=== PATIENT | female | born 1985 | race American Indian/Alaskan Native ===

== ENCOUNTER 2020-11-30 00:58 | Emergency (ER) | payer OTHER ==
--- NOTE | 2020-11-30 01:37 | Emergency Department Report ---
ED Headache HPI - General Chief Complaint: Headache Stated Complaint: HEADACHE FACIAL PAIN x1 day - History of Present Illness Initial Comments: 35-year-old obese F Malawian female past medical history of migraines asthma department complaining of a 1 month history of episodes of right parietal dull throbbing headaches causing some numbness and tingling off and on not responding to [id number]-jov-[id number] medications. She was previously taking Topamax but has been out of that medication and now the symptoms are continuing to linger. Reports no chest pain, no palpitations, no fever, chills, sweats. Allergies/Adverse Reactions: Allergies acetaminophen [From Percocet] Allergy (Verified 11/30/20 01:32) Unknown buspirone [From BuSpar] Allergy (Verified 11/30/20 01:32) Unknown oxycodone [From Percocet] Allergy (Verified 11/30/20 01:32) Unknown maria del carmen fish Allergy (Uncoded 11/30/20 01:32) Unknown Home Medications: Ambulatory Orders Ketorolac [Toradol] 10 mg PO Q6H PRN #14 tablet 11/30/20 ED Review of Systems ROS: Stated complaint: HEADACHE FACIAL PAIN x1 day Other details as noted in HPI Comment: All other systems reviewed and negative ED Past Medical Hx - Past Medical History Previous Medical History?: Yes Hx Psychiatric Treatment: Yes (anxeity) Hx Asthma: Yes - Surgical History Past Surgical History?: Yes Hx Cholecystectomy: Yes - Social History Smoking Status: Current Every Day Smoker Substance Use Type: None - Medications Home Medications: Home Medications Medication Instructions Recorded Confirmed Last Taken Type Ketorolac [Toradol] 10 mg PO Q6H PRN #14 tablet 11/30/20 Unknown Rx ED Physical Exam - General Limitations: No Limitations General appearance: alert, in no apparent distress - Head Head exam: Present: atraumatic, normocephalic - Eye Eye exam: Present: normal appearance, PERRL, EOMI Pupils: Present: normal accommodation - ENT ENT exam: Present: mucous membranes moist - Neck Neck exam: Present: normal inspection - Respiratory Respiratory exam: Present: normal lung sounds bilaterally. Absent: respiratory distress - Cardiovascular Cardiovascular Exam: Present: regular rate, normal rhythm. Absent: systolic murmur, diastolic murmur, rubs, gallop - GI/Abdominal GI/Abdominal exam: Present: soft, normal bowel sounds - Extremities Exam Extremities exam: Present: normal inspection - Back Exam Back exam: Present: normal inspection - Neurological Exam Neurological exam: Present: alert, oriented X3 - Psychiatric Psychiatric exam: Present: normal affect, normal mood - Skin Skin exam: Present: warm, dry, intact, normal color. Absent: rash ED Course Vital Signs 11/30/20 11/30/20 01:28 04:59 Temperature 97.5 F L Pulse Rate 76 98 H Respiratory 17 16 Rate Blood Pressure 124/80 128/69 O2 Sat by Pulse 98 100 Oximetry ED Medical Decision Making - Radiology Data Radiology results: report reviewed [facility] [address] [place] [address] Cat Scan Report Signed Patient: LORI DENNIS MR#: [id number] : 1985 Acct:[id number] Age/Sex: 35 / F ADM Date: 11/30/20 Loc: ED Attending Dr: Ordering Physician: LLOYD TOLENTINO Date of Service: 11/30/20 Procedure(s): CT head/brain wo con Accession Number(s): [id number] cc: LLOYD TOLENTINO CT HEAD WITHOUT CONTRAST INDICATION / CLINICAL INFORMATION: Patient complains of a headache. TECHNIQUE: All CT scans at this location are performed using CT dose reduction for ALARA by means of automated exposure control. COMPARISON: None available. FINDINGS: HEMORRHAGE: None. EXTRA-AXIAL SPACES: Normal in size and morphology for the patient's age. VENTRICULAR SYSTEM: Normal in size and morphology for the patient's age. CEREBRAL PARENCHYMA: No significant abnormality. No acute territorial infarct. MIDLINE SHIFT / HERNIATION: None. CEREBELLUM / BRAINSTEM: No significant abnormality. ORBITS: Normal as visualized. SOFT TISSUES: No significant abnormality. SKULL: No significant abnormality. PARANASAL SINUSES / MASTOID AIR CELLS: Normal as visualized. ADDITIONAL FINDINGS: None. IMPRESSION: 1. No acute intracranial abnormality. Signer Name: Shawn Franks MD Signed: 11/30/2020 4:15 AM Workstation Name: [id number] Transcribed By: Dictated By: Shawn Franks MD Electronically Authenticated By: Shawn Franks MD Signed Date/Time: 11/30/20 0415 DD/ 1 TD/TT: - Medical Decision Making This patient presents with a headache most consistent with migraine. Differential diagnosis includes migraine versus tension type headache. No headache red flags. Neurologic exam without evidence of meningismus, focal neurologic findings.Based on the patient's history and physical there is very low clinical suspicion for significant intracranial pathology. The headache was NOT sudden onset, NOT maximal at onset, there are NO neurologic findings, the patient does NOT have a fever, the patient does NOT have any jaw claudication, the patient does NOT endorse a clotting disorder, patient DENIES any trauma or eye pain and the headache is NOT associated with dizziness or ataxia. Presentation not consistent with acute intracranial bleed to include SAH (lack of risk factors, headache history). Presentation not consistent with acute MANAGER SURGICAL infection to include meningitis or brain abscess, Temporal arteritis unlikely, as is acute angle closure glaucoma given history and physical findings. Presentation not consistent with other acute, emergent causes of headache at this time. Plan to treat symptomatically with pain medication. No indication for imaging/LP at this time. Plan: pain medication, CT brain, serial reassessment Critical care attestation.: If time is entered above; I have spent that time in minutes in the direct care of this critically ill patient, excluding procedure time. ED Disposition Clinical Impression: Cephalgia Disposition: DC-01 TO HOME OR SELFCARE Is pt being admited?: No Does the pt Need Aspirin: No Condition: Stable Instructions: Migraine Headache, [place]-Keiu, Recurrent Migraine Headache, Form - Headache Record Prescriptions: Ketorolac [Toradol] 10 mg PO Q6H PRN #14 tablet PRN Reason: Pain Referrals: [facility] [Provider Group] - 3-5 Days [facility], [Primary Care Provider] - 3-5 Days
[2020-11-30] MEDS ORDERED: KETOROLAC 60 MG/2 ML INJ IM ONE (01:39)
--- NOTE | 2020-11-30 04:19 | Cat Scan Report ---
CT HEAD WITHOUT CONTRAST INDICATION / CLINICAL INFORMATION: Patient complains of a headache. TECHNIQUE: All CT scans at this location are performed using CT dose reduction for ALARA by means of automated exposure control. COMPARISON: None available. FINDINGS: HEMORRHAGE: None. EXTRA-AXIAL SPACES: Normal in size and morphology for the patient's age. VENTRICULAR SYSTEM: Normal in size and morphology for the patient's age. CEREBRAL PARENCHYMA: No significant abnormality. No acute territorial infarct. MIDLINE SHIFT / HERNIATION: None. CEREBELLUM / BRAINSTEM: No significant abnormality. ORBITS: Normal as visualized. SOFT TISSUES: No significant abnormality. SKULL: No significant abnormality. PARANASAL SINUSES / MASTOID AIR CELLS: Normal as visualized. ADDITIONAL FINDINGS: None. IMPRESSION: 1. No acute intracranial abnormality. Signer Name: Shawn Franks MD Signed: 11/30/2020 4:15 AM Workstation Name: [id number]
[2020-11-30 05:01] VITALS: BP 128/69
== END 2020-11-30 06:00 | disposition home or self-care (01) ==
LOC: ED 00:58
DX: R51.9 Headache, unspecified (principal); F41.9 Anxiety disorder, unspecified; J45.909 Unspecified asthma, uncomplicated; F17.200 Nicotine dependence, unspecified, uncomplicated; Z90.49 Acquired absence of other specified parts of digestive tract; Z88.8 Allergy status to other drugs, medicaments and biological substances
CPT/HCPCS: 70450; 96372; 99284; J1885

== ENCOUNTER 2020-12-13 15:17 | Emergency (ER) | payer OTHER ==
[2020-12-13] MEDS ORDERED: IBUPROFEN 600 MG TAB PO ONE (16:20)
[2020-12-13] MEDS ORDERED: ACETAMINOPHEN 500 MG TAB PO ONE (16:20)
--- NOTE | 2020-12-13 16:25 | Emergency Department Report ---
ED Back Pain/Injury HPI - General Chief Complaint: Back Pain/Injury Stated Complaint: BODY PAIN/WEAKNESS Source: patient Limitations: No Limitations - History of Present Illness Initial Comments: Patient is a 35-year-old -Rwandan female with a history of morbid obesity, asthma, anxiety and depression who presents to the ED with complaint of acute onset persistent low back pain with bilateral ankle swelling for the last 1 week after she slipped and fell down while playing football with her daughter. Patient states that the pain has been persistent in her lower back but intermittent, worse with ambulation or twisting movements. Patient also complains of urinary frequency and urgency, and would like to be tested for urinary tract infection. Patient denies dizziness, syncope, fever, chills, nausea, vomiting, abdominal pain, dysuria, vaginal bleeding, vaginal discharge, numbness and tingling or weakness of upper and lower extremities bilaterally, chest pain or shortness of breath, cough, heavy lifting or traumatic injury. MD Complaint: back pain, fall -: Sudden, week(s) (1) Similar Symptoms Previously: No Place: home Radiation: none Severity: severe Severity scale (0 -10): 8 Quality: sharp, aching Consistency: constant Improves With: none Worsens With: none Context: turning/twisting, fall Associated Symptoms: denies: denies other symptoms, confusion, weakness, chest pain, numbness, difficulty walking, cough, difficulty urinating, diaphoresis, incontinence, fever/chills, constipation, headaches, abdominal pain, loss of appetite, nausea/vomiting, rash, seizure, shortness of breath, syncope, other - Related Data Previous Rx's Medication Instructions Recorded Last Taken Type Ketorolac [Toradol] 10 mg PO Q6H PRN #14 tablet 11/30/20 Unknown Rx Baclofen 20 mg PO Q8H PRN #24 tablet 12/13/20 Unknown Rx Naproxen 500 mg PO Q12H PRN #30 tablet 12/13/20 Unknown Rx predniSONE [Deltasone] 40 mg PO QDAY #10 tab 12/13/20 Unknown Rx Allergies Allergy/AdvReac Type Severity Reaction Status Date / Time acetaminophen [From Percocet] Allergy Unknown Verified 11/30/20 01:32 buspirone [From BuSpar] Allergy Unknown Verified 11/30/20 01:32 oxycodone [From Percocet] Allergy Unknown Verified 11/30/20 01:32 maria del carmen fish Allergy Unknown Uncoded 11/30/20 01:32 ED Review of Systems ROS: Stated complaint: BODY PAIN/WEAKNESS Other details as noted in HPI Constitutional: denies: chills, fever Eyes: denies: eye pain, eye discharge, vision change ENT: denies: ear pain, throat pain Respiratory: denies: cough, shortness of breath, wheezing Cardiovascular: denies: chest pain, palpitations Endocrine: no symptoms reported Gastrointestinal: denies: abdominal pain, nausea, diarrhea Genitourinary: urgency, frequency. denies: dysuria, hematuria, discharge, abnormal menses, dyspareunia Musculoskeletal: back pain (Low back pain), joint swelling (Bilateral ankles pain and swelling), arthralgia (Bilateral ankle pain and swelling) Skin: denies: rash, lesions Neurological: denies: headache, weakness, paresthesias Psychiatric: denies: anxiety, depression Hematological/Lymphatic: denies: easy bleeding, easy bruising ED Past Medical Hx - Past Medical History Previous Medical History?: Yes Hx Psychiatric Treatment: Yes (anxeity) Hx Asthma: Yes - Surgical History Past Surgical History?: Yes Hx Cholecystectomy: Yes - Social History Smoking Status: Current Every Day Smoker Substance Use Type: None - Medications Home Medications: Home Medications Medication Instructions Recorded Confirmed Last Taken Type Ketorolac [Toradol] 10 mg PO Q6H PRN #14 tablet 11/30/20 Unknown Rx Baclofen 20 mg PO Q8H PRN #24 tablet 12/13/20 Unknown Rx Naproxen 500 mg PO Q12H PRN #30 tablet 12/13/20 Unknown Rx predniSONE [Deltasone] 40 mg PO QDAY #10 tab 12/13/20 Unknown Rx ED Physical Exam - General Limitations: No Limitations General appearance: alert, in no apparent distress - Head Head exam: Present: atraumatic, normocephalic, normal inspection - Eye Eye exam: Present: normal appearance, PERRL, EOMI Pupils: Present: normal accommodation - ENT ENT exam: Present: normal exam, normal orophraynx, mucous membranes moist, TM's normal bilaterally, normal external ear exam - Neck Neck exam: Present: normal inspection, full ROM - Respiratory Respiratory exam: Present: normal lung sounds bilaterally. Absent: respiratory distress, wheezes, rales, rhonchi, stridor, chest wall tenderness, accessory muscle use, decreased breath sounds, prolonged expiratory - Cardiovascular Cardiovascular Exam: Present: regular rate, normal rhythm, normal heart sounds. Absent: systolic murmur, diastolic murmur, rubs, gallop - GI/Abdominal GI/Abdominal exam: Present: soft, normal bowel sounds. Absent: tenderness, guarding, rebound, hyperactive bowel sounds, organomegaly - Extremities Exam Extremities exam: Present: normal inspection, full ROM, normal capillary refill. Absent: tenderness, pedal edema, joint swelling, calf tenderness - Back Exam Back exam: Present: normal inspection, full ROM, tenderness (Palpable lumbosacral paraspinal musculoskeletal tenderness), muscle spasm, paraspinal tenderness. Absent: CVA tenderness (R), CVA tenderness (L), vertebral tenderness - Neurological Exam Neurological exam: Present: alert, oriented X3, CN II-XII intact, normal gait, reflexes normal - Psychiatric Psychiatric exam: Present: normal affect, normal mood, anxious - Skin Skin exam: Present: warm, dry, intact, normal color. Absent: rash ED Course Vital Signs 12/13/20 15:53 Temperature 98.6 F Pulse Rate 79 Respiratory 18 Rate Blood Pressure 132/85 O2 Sat by Pulse 100 Oximetry ED Medical Decision Making - Medical Decision Making This is a 35-year-old -Rwand[place] female with a history of morbid obesity, asthma, anxiety and depression who presents to the ED with complaint of acute onset persistent low back pain with bilateral ankle swelling for the last 1 week after she slipped and fell down while playing football with her daughter. Patient states that the pain has been persistent in her lower back but intermittent, worse with ambulation or twisting movements. Patient also complains of urinary frequency and urgency, and would like to be tested for urinary tract infection. In the ED, patient is alert and oriented x3 and is not in any distress but appears to be in pain and anxious but stable hemodynamically. Patient was treated for pain in the ED and urinalysis showed no acute urinary tract infection or any acute abnormalities. On reevaluation, patient's pain is well controlled medication. Patient was discharged home on pain medications and muscle relaxants and was advised to follow-up with her primary care physician in 5 to 7 days for reevaluation or return to the ED immediately if symptoms get worse. - Differential Diagnosis Muscle spasm; muscle strain; back injury; UTI Critical care attestation.: If time is entered above; I have spent that time in minutes in the direct care of this critically ill patient, excluding procedure time. ED Disposition Clinical Impression: Acute bilateral low back pain without sciatica, Spasm of muscle of lower back, Strain of muscle, fascia and tendon of lower back, initial encounter Disposition: TO HOME OR SELFCARE Is pt being admited?: No Does the pt Need Aspirin: No Condition: Stable Instructions: Muscle Cramps and Spasms, Ambe-ts-Dogj, Acute Back Pain, Adult, Low Back Sprain or Strain Rehab-SportsMed Additional Instructions: Take medication with food, drink plenty of fluids and follow-up with your primary care physician in 7 to 10 days for reevaluation. Return to the ED im mediately if symptoms get worse. Prescriptions: Baclofen 20 mg PO Q8H PRN #24 tablet PRN Reason: Muscle Spasm predniSONE [Deltasone] 40 mg PO QDAY #10 tab Naproxen 500 mg PO Q12H PRN #30 tablet PRN Reason: Pain , Severe (7-10) Referrals: [facility] [Outside] - 3-5 Days [facility] [Provider Group] - 3-5 Days Time of Disposition: 17:35 Print Language: GREENLANDIC
[2020-12-13 16:34] VITALS: BP 132/85
[2020-12-13 17:17] LABS: Bilirubin,Urine NEG (Negative); Blood,Urine NEG (Negative); Color,Urine Yellow (Yellow); Mucus,Urine FEW /HPF; Protein,Urine <15 mg/dL mg/dL (Negative)
[2020-12-13 17:31] LABS: HCG Qualitative,Urine Negative (Negative)
== END 2020-12-13 18:17 | disposition home or self-care (01) ==
LOC: ED 15:17
DX: S39.012A Strain of muscle, fascia and tendon of lower back, initial encounter (principal); M54.42 Lumbago with sciatica, left side; M54.41 Lumbago with sciatica, right side; M62.830 Muscle spasm of back; F41.9 Anxiety disorder, unspecified; J45.909 Unspecified asthma, uncomplicated; F17.200 Nicotine dependence, unspecified, uncomplicated; Z90.49 Acquired absence of other specified parts of digestive tract; Z79.899 Other long term (current) drug therapy; Z88.8 Allergy status to other drugs, medicaments and biological substances; W01.0XXA Fall on same level from slipping, tripping and stumbling without subsequent striking against object, initial encounter; Y93.61 Activity, american tackle football; Y92.89 Other specified places as the place of occurrence of the external cause; Y99.8 Other external cause status
CPT/HCPCS: 81001; 81025

== ENCOUNTER 2021-01-07 23:17 | Emergency (ER) | payer OTHER ==
[2021-01-07 23:48] VITALS: BP 126/80
[2021-01-07] MEDS ORDERED: IBUPROFEN 600 MG TAB PO ONE (23:49)
--- NOTE | 2021-01-07 23:53 | Emergency Department Report ---
ED General Adult HPI - General Stated complaint: FLU LIKE SYMPTOMS PUI?: Yes Source: patient - History of Present Illness Initial comments: 35-year-old -Tongan female presents to the emergency room for 1 day history of vomiting x5 today fever, hot and cold, lower abdominal pain dysuria and urinary urgency. Patient states she is taken TheraFlu but nothing today. Last menstrual period was 12/19/2020. Patient reports has a history of anxiety and muscle spasms. She denies any Covid contact that she is aware of. Patient complains of a headache. Onset/Timin Location: abdomen (lower) Severity scale (0 -10): 9 Consistency: intermittent Improves with: none Worsens with: none Associated Symptoms: fever/chills, nausea/vomiting Treatments Prior to Arrival: none - Related Data Previous Rx's Medication Instructions Recorded Last Taken Type Ketorolac [Toradol] 10 mg PO Q6H PRN #14 tablet 11/30/20 Unknown Rx Baclofen 20 mg PO Q8H PRN #24 tablet 12/13/20 Unknown Rx Naproxen 500 mg PO Q12H PRN #30 tablet 12/13/20 Unknown Rx predniSONE [Deltasone] 40 mg PO QDAY #10 tab 12/13/20 Unknown Rx Promethazine [Phenergan] 25 mg PO Q8HR PRN #12 tab 01/08/21 Unknown Rx Allergies Allergy/AdvReac Type Severity Reaction Status Date / Time acetaminophen [From Percocet] Allergy Unknown Verified 11/30/20 01:32 buspirone [From BuSpar] Allergy Unknown Verified 11/30/20 01:32 oxycodone [From Percocet] Allergy Unknown Verified 11/30/20 01:32 maria del carmen fish Allergy Unknown Uncoded 11/30/20 01:32 ED Review of Systems ROS: Stated complaint: FLU LIKE SYMPTOMS Other details as noted in HPI Comment: All other systems reviewed and negative ED Past Medical Hx - Past Medical History Hx Psychiatric Treatment: Yes (anxeity) Hx Asthma: Yes - Surgical History Hx Cholecystectomy: Yes - Social History Smoking Status: Current Every Day Smoker Substance Use Type: None - Medications Home Medications: Home Medications Medication Instructions Recorded Confirmed Last Taken Type Ketorolac [Toradol] 10 mg PO Q6H PRN #14 tablet 11/30/20 Unknown Rx Baclofen 20 mg PO Q8H PRN #24 tablet 12/13/20 Unknown Rx Naproxen 500 mg PO Q12H PRN #30 tablet 12/13/20 Unknown Rx predniSONE [Deltasone] 40 mg PO QDAY #10 tab 12/13/20 Unknown Rx Promethazine [Phenergan] 25 mg PO Q8HR PRN #12 tab 01/08/21 Unknown Rx ED Physical Exam - General Limitations: No Limitations General appearance: alert, in no apparent distress - Head Head exam: Present: atraumatic, normocephalic - Eye Eye exam: Present: normal appearance - ENT ENT exam: Present: mucous membranes moist - Neck Neck exam: Present: normal inspection, full ROM - Respiratory Respiratory exam: Present: normal lung sounds bilaterally. Absent: chest wall tenderness, accessory muscle use - Cardiovascular Cardiovascular Exam: Present: tachycardia - GI/Abdominal GI/Abdominal exam: Present: soft, tenderness (Suprapubic). Absent: distended - Extremities Exam Extremities exam: Present: normal inspection, full ROM - Back Exam Back exam: Present: normal inspection, full ROM - Neurological Exam Neurological exam: Present: alert, oriented X3, normal gait - Psychiatric Psychiatric exam: Present: normal affect - Skin Skin exam: Present: warm, dry, intact, normal color. Absent: rash ED Course Vital Signs 01/07/21 23:45 Temperature 100.2 F H Pulse Rate 107 H Respiratory 16 Rate Blood Pressure 126/80 [126/80] O2 Sat by Pulse 97 Oximetry ED Medical Decision Making - Lab Data Laboratory Tests 01/07/21 01/08/21 Unknown 00:17 Urine Color Yellow Urine Turbidity Clear Urine pH 8.0 H Ur Specific [place] 1.025 Urine Protein 100 mg/dl Urine Glucose (UA) Neg Urine Ketones Neg Urine Blood Sm Urine Nitrite Neg Urine Bilirubin Neg Urine Urobilinogen 4.0 Ur Leukocyte Esterase Sm Urine WBC (Auto) 1.0 Urine RBC (Auto) 1.0 U Epithel Cells (Auto) 6.0 Urine Mucus Few Urine HCG, Qual Negative Influenza A (Rapid) Negative Influenza B (Rapid) Negative - Medical Decision Making 35-year-old -Tongan female presents to the emergency room for 1 day h istory of vomiting x5 today fever hot and cold lower abdominal pain dysuria and urinary urgency. Patient states she is taken TheraFlu but nothing today. Last menstrual period was 12/19/2020. Patient reports has a history of anxiety and muscle spasms. She denies any Covid contact that she is aware of. Patient complains of a headache. Rapid flu urinalysis urine test. Ibuprofen for fever. Rapid flu is negative urinalysis is negative test is negative. Critical care attestation.: If time is entered above; I have spent that time in minutes in the direct care of this critically ill patient, excluding procedure time. ED Disposition Clinical Impression: Fever Qualifiers: Fever type: unspecified Qualified Code(s): R50.9 - Fever, unspecified Headache Qualifiers: Headache type: unspecified Headache chronicity pattern: acute headache Intractability: intractable Qualified Code(s): R51.9 - Headache, unspecified Disposition: DC- TO HOME OR SELFCARE Is pt being admited?: No Does the pt Need Aspirin: No Condition: Stable Instructions: Fever, Adult, Rozf-ff-Iukg Additional Instructions: Your symptoms appear most consistent with a nonspecific viral syndrome. However, given this current pandemic, COVID-19 is in the differential of possibilities. Despite your previous negative COVID-19 test, I do recommend repeat outpatient Covid 19 testing. In the meantime, isolate/quarantine yourself and stay away from anyone who is elderly, immunocompromised or chronically ill. You can use ibuprofen every 6-8 hours and Tylenol every 4-8 hours, using the dosing on the back of the bottle, as needed for any fever or body aches. Return to the emergency department with any worsening of your symptoms, development of chest pain or shortness of breath, or with any acute distress. Prescriptions: Promethazine [Phenergan] 25 mg PO Q8HR PRN #12 tab PRN Reason: Nausea Referrals: RAMAKRISHNA RODRÍGUEZ MD [Primary Care Provider] - 3-5 Days Forms: Work/School Release Form(ED)
[2021-01-08 00:28] LABS: Bilirubin,Urine NEG (Negative); Blood,Urine SM (Negative); Color,Urine Yellow (Yellow); Mucus,Urine FEW /HPF
[2021-01-08 00:44] LABS: HCG Qualitative,Urine Negative (Negative)
[2021-01-08] MEDS ORDERED: ONDANSETRON 4 MG ODT TAB PO ONE (01:07)
[2021-01-08] MEDS ORDERED: PROMETHAZINE 25 MG TAB PO ONE (01:49)
== END 2021-01-08 02:05 | disposition home or self-care (01) ==
LOC: ED 23:17
DX: R50.9 Fever, unspecified (principal); R51.9 Headache, unspecified; F41.9 Anxiety disorder, unspecified; J45.909 Unspecified asthma, uncomplicated; F17.200 Nicotine dependence, unspecified, uncomplicated; Z90.49 Acquired absence of other specified parts of digestive tract; Z79.899 Other long term (current) drug therapy; Z88.8 Allergy status to other drugs, medicaments and biological substances
CPT/HCPCS: 81001; 81025; 87400; 99283; Q0169

== ENCOUNTER 2021-01-19 18:39 | Emergency (ER) | payer OTHER ==
[2021-01-19 19:03] VITALS: BP 134/91
--- NOTE | 2021-01-19 19:05 | Event Note ---
ED Screening Note Date of service: 01/19/21 Time: 19:05 ED Screening Note: Patient complains of bilateral leg swelling and pain and shortness of breath x3 weeks Denies history of heart failure This initial assessment/diagnostic orders/clinical plan/treatment(s) is/are subject to change based on patients health status, clinical progression and re- assessment by fellow clinical providers in the ED. Further treatment and workup at subsequent clinical providers discretion. Patient/guardian urged not to elope from the ED as their condition may be serious if not clinically assessed and managed. Initial orders include: Labs EKG Chest x-ray
[2021-01-19 19:29] LABS: Basophils % (Auto) 0.6 % (0.0-1.8); Eosinophils # (Auto) 0.1 K/mm3 (0.0-0.4); Eosinophils % (Auto) 1.3 % (0.0-4.3); Hemoglobin 12.6 gm/dl (10.1-14.3); Lymphocytes # (Auto) 2.5 K/mm3 (1.2-5.4); Monocytes # (Auto) 0.6 K/mm3 (0.0-0.8); Monocytes % (Auto) 7.9 % (0.0-7.3)
[2021-01-19 19:38] LABS: Hematocrit 38.1 % (30.3-42.9); Mean Corpuscular HGB Conc 33 % (30-34); Mean Corpuscular Volume 95 fl (79-97); Platelet Count 242 K/mm3 (140-440); Red Blood Count 4.01 M/mm3 (3.65-5.03); Red Cell Distribution Width 15.1 % (13.2-15.2)
--- NOTE | 2021-01-19 19:40 | XRay Report ---
CHEST 2 VIEWS INDICATION / CLINICAL INFORMATION: Shortness of breath. COMPARISON: None available. FINDINGS: SUPPORT DEVICES: None. HEART / MEDIASTINUM: No significant abnormality. LUNGS / PLEURA: No significant pulmonary or pleural abnormality. No pneumothorax. ADDITIONAL FINDINGS: No significant additional findings. IMPRESSION: 1. No acute findings. Signer Name: Victoriano Villafuerte MD Signed: 01/19/2021 7:35 PM Workstation Name: [id number]
[2021-01-19 19:50] LABS: Alanine Aminotransferase 38 units/L (7-56); Albumin 3.7 g/dL (3.9-5); Blood Urea Nitrogen 10 mg/dL (7-17); Calcium 8.4 mg/dL (8.4-10.2); Hemolysis Index 19
[2021-01-19 19:54] LABS: BUN/Creatinine Ratio 17
--- NOTE | 2021-01-19 22:21 | Vascular Lab Report ---
DUPLEX DOPPLER LOWER EXTREMITY VEINS, BILATERAL INDICATION / CLINICAL INFORMATION: Swelling and pain to the lower legs. TECHNIQUE: Duplex doppler imaging was performed through the veins of both lower extremities using venous livia pierce and other maneuvers. COMPARISON: None available. FINDINGS: RIGHT COMMON FEMORAL VEIN: Negative. RIGHT FEMORAL VEIN: Negative. RIGHT POPLITEAL VEIN: Negative. RIGHT CALF VEINS: Negative. LEFT COMMON FEMORAL VEIN: Negative. LEFT FEMORAL VEIN: Negative. LEFT POPLITEAL VEIN: Negative. LEFT CALF VEINS: Negative. ADDITIONAL FINDINGS: None. IMPRESSION: 1. No sonographic evidence for DVT in either lower extremity. Signer Name: Addison Jeffrey MD Signed: 01/19/2021 10:16 PM Workstation Name: [id number]
--- NOTE | 2021-01-20 09:23 | Electrocardiograph Report ---
[facility] Test Date: 2021-01-19 Test Time: 19:11:46 Pat Name: LORI DENNIS Department: Room: Gender: F Building Certifier: CARSON : 1985 Requested By: CLAU MERCADO III Order Number: [id number] Reading MD: Marques Paniagua Measurements Intervals Lyman Rate: 82 P: 64 AR: 131 QRS: 47 QRSD: 78 T: 35 QT: 374 QTc: 436 Interpretive Statements Sinus rhythm No previous ECG available for comparison Electronically Signed On 01-21-2021 6:43:38 PDT by Marques Paniagua
== END 2021-01-19 19:32 | disposition left against medical advice (07) ==
LOC: ED 18:39
DX: R06.02 Shortness of breath (principal); Z53.21 Procedure and treatment not carried out due to patient leaving prior to being seen by health care provider
CPT/HCPCS: 36415; 71046; 80053; 83880; 84484; 84703; 85025; 93005; 93970

== ENCOUNTER 2022-04-12 14:44 | Emergency (ER) | payer OTHER ==
[2022-04-12 17:25] VITALS: BP 124/80
[2022-04-12 18:37] LABS: Basophils % (Auto) 0.5 % (0.0-1.8); Eosinophils # (Auto) 0.1 K/mm3 (0.0-0.4); Eosinophils % (Auto) 1.6 % (0.0-4.3); Hematocrit 39.3 % (30.3-42.9); Lymphocytes # (Auto) 2.7 K/mm3 (1.2-5.4); Lymphocytes % (Auto) 34.6 % (13.4-35.0); Mean Corpuscular HGB Conc 33 % (30-34); Mean Corpuscular Volume 95 fl (79-97); Monocytes # (Auto) 0.5 K/mm3 (0.0-0.8); Monocytes % (Auto) 6.9 % (0.0-7.3); Platelet Count 248 K/mm3 (140-440); Red Blood Count 4.13 M/mm3 (3.65-5.03); Red Cell Distribution Width 14.7 % (13.2-15.2)
[2022-04-12 19:01] LABS: Alanine Aminotransferase 29 units/L (7-56); Albumin 3.9 g/dL (3.9-5); Blood Urea Nitrogen 14 mg/dL (7-17); Calcium 9.3 mg/dL (8.4-10.2); Hemolysis Index 4
[2022-04-12 19:06] LABS: BUN/Creatinine Ratio 20
== END 2022-04-12 19:37 | disposition left against medical advice (07) ==
LOC: ED 14:44
DX: M79.89 Other specified soft tissue disorders (principal); Z53.21 Procedure and treatment not carried out due to patient leaving prior to being seen by health care provider
CPT/HCPCS: 36415; 80053; 85025